=== PATIENT | male | born 1955 | race Caucasian/White ===

== ENCOUNTER 2022-10-30 11:23 | Emergency (ER) | payer BC ==
[2022-10-30 12:28] LABS: #Basophils 0.1 10x3/uL (0.0-0.2); #Eosinphils 0.1 10x3/uL (0.0-0.5); #Monocytes 0.5 10x3/uL (0.0-1.1); #Neutrophils 4.8 10x3/uL (1.5-8.4); %Monocytes 6.9 % (0.0-10.0); %Neutrophils 69.8 % (40.0-75.0); Hematocrit 43.6 % (38.8-50.0); Hemoglobin 14.2 g/dL (13.5-17.5); Mean Corpuscular HGB CONC 32.6 g/dL (32.0-36.0); Mean Corpuscular Hemoglobin 27.6 pg (27.0-33.0); Mean Corpuscular Volume 84.7 fl (81.2-95.1); Platelet Count 260 10x3/uL (150-450); RBC Distribution Width 12.6 % (11.5-14.5); Red Blood Cell (RBC) Count 5.15 10x6/uL (4.32-5.72); White Blood Cell (WBC) Count 6.9 10x3/uL (3.5-10.5)
[2022-10-30 12:36] LABS: INR-International Normal Ratio 1.2; PTT 34.7 sec (22.0-33.0); Prothrombin Time 13.1 sec (9.5-12.1)
[2022-10-30 12:42] LABS: ALT (SGPT) 26 U/L (8-55); AST (SGOT) 23 U/L (5-34); Alkaline Phosphatase 72 U/L (40-110); Anion Gap 13 mmol/L (10-20); BUN (Urea Nitrogen) 15 mg/dL (8.4-25.7); Bilirubin, Total 0.6 mg/dL (0.2-1.2); Calc. Creatinine Clearance 0 mL/min (70-130); Calcium 8.8 mg/dL (7.8-10.44); Carbon Dioxide 23 mmol/L (23-31); Chloride 111 mmol/L (98-107); Estimated GFR 84; Globulin 2.6 g/dL (2.4-3.5); Glucose 89 mg/dL (80-115); Potassium 4.7 mmol/L (3.5-5.1); Protein, Total 6.6 g/dL (5.8-8.1); Sodium 142 mmol/L (136-145)
[2022-10-30 12:43] LABS: Troponin I Less than 0.010 ng/mL (< 0.028)
[2022-10-30 12:45] LABS: Magnesium 2.1 mg/dL (1.6-2.6)
[2022-10-30 13:07] LABS: Free T4 (Free Thyroxine) 0.82 ng/dL (0.70-1.48); Thyroid Stimulating Hormone 1.467 uIU/mL (0.35-4.94)
== END 2022-10-30 13:16 | disposition home or self-care (01) ==
LOC: CSHERS 11:23
DX: R20.2 Paresthesia of skin (principal)
CPT/HCPCS: 36415; 71045; 80053; 83735; 84439; 84443; 84484; 85025; 85610; 85730; 93005